=== PATIENT | male | born 1960 | race Caucasian/White ===

== ENCOUNTER 2020-05-18 14:59 | Outpatient (CLI) | payer OTHER, SELFPAY ==
--- NOTE | 2020-05-18 15:19 | USCV_ITS ---
Liam Eaton Age: 60 Gender: M : 1960 Exam Date: 05/18/2020 15:39 Ordering Phys: Carmen Collado DYE WINCH OPERATOR DYE WINCH OPERATOR Technologist: Aspen Harley Exam Location: [facility] [place] Indication: S/P TRAUMA [id number] AGO, RLE SWELLING PROCEDURES: Venous duplex imaging was performed in only the right lower extremity. The following venous structures were evaluated: common femoral vein, profunda vein, proximal portion of the greater saphenous vein, superficial femoral vein, and the popliteal vein. In addition, the posterior tibial veins were evaluated. Serial compression, augmentation maneuvers, and spectral Doppler flow evaluation were performed. FINDINGS: No evidence of DVT seen in any vessel visualized at this time. CONCLUSIONS No evidence of DVT in the above-mentioned identifiable veins. Dr Hammad Fung MD [facility] (Electronically Signed) Final Date: 19 May 2020 17:51 S
== END 2020-05-18 15:00 | disposition home or self-care (01) ==
PROVIDERS: PCP Nurse Practitioner Family; Visit Provider Nurse Practitioner
DX: M79.89 Other specified soft tissue disorders (principal)
CPT/HCPCS: 93971

== ENCOUNTER → 2021-02-26 15:41 | Outpatient (BNVA) | payer OTHER, SELFPAY | PROVIDERS: PCP Registered Nurse; Visit Provider Registered Nurse | DX: L98.9 Disorder of the skin and subcutaneous tissue, unspecified (principal) | CPT/HCPCS: 88305 ==

== ENCOUNTER → 2022-08-28 12:59 | Outpatient (BNVA) | payer BC, SELFPAY | PROVIDERS: PCP Registered Nurse; Visit Provider Registered Nurse Neonatal Intensive Care | DX: R05.9 Cough, unspecified (principal); Z11.52 Encounter for screening for COVID-19 | CPT/HCPCS: 87426 ==